=== PATIENT | female | born 1960 | race Caucasian/White ===

== ENCOUNTER 2018-10-06 20:09 | Emergency (ER) | payer MEDICAID, OTHER ==
[~2018-10-06] VITALS: Ht 167.6 cm; Wt 63.5 kg
[~2018-10-06 20:09] MED LIST: CLON0.5T12 PO; TRAM50TA2 PO
--- NOTE | 2018-10-06 20:10 | NUR ---
Patient triaged and placed in waiting room. VSS and patient appears in no acute distress at this time. Accompanied by SELF , awaiting available bed, and MD notified of need for MSE.
[2018-10-06 20:18] VITALS: BP_SYST 137
--- NOTE | 2018-10-07 00:11 | NUR ---
Pt ambulatory to bed 3 for evaluation
--- NOTE | 2018-10-07 00:48 | NUR ---
ER Dr. Harper at bedside examining patient.
--- NOTE | 2018-10-07 01:00 | NUR ---
PT "BUMPED INTO A POLE, AT WORK" LIGHT HEADACHE AT THE TIME OF INCIDENT. NO S/S OF ACUTE DISTRESS, V/S STABLE. RESTING ON [email or web address] RAILS UP
[2018-10-07 01:17] VITALS: BP_SYST 128
--- NOTE | 2018-10-07 01:18 | NUR ---
Patient given written and verbal discharge instructions and verbalizes understanding. ER MD discussed with patient the results and treatment provided. Patient in stable condition. ID arm band removed. Rx of TYLENOL given. Patient educated on pain management and to follow up with PMD. Pain Scale 0/10. Opportunity for questions provided and answered. Medication side effect fact sheet provided.
== END 2018-10-07 01:17 | disposition home or self-care (01) ==
LOC: SED 20:09
DX: S09.90XA Unspecified injury of head, initial encounter (principal); I10 Essential (primary) hypertension; W22.8XXA Striking against or struck by other objects, initial encounter; Y93.89 Activity, other specified; Y92.69 Other specified industrial and construction area as the place of occurrence of the external cause; Y99.8 Other external cause status; Z88.5 Allergy status to narcotic agent
CPT/HCPCS: 70450-TC; 99284

== ENCOUNTER 2020-11-09 21:29 | Emergency (ER) | payer MEDICAID ==
[~2020-11-09] VITALS: Ht 167.6 cm; Wt 63.5 kg
[~2020-11-09 21:29] MED LIST changes: -CLON0.5T12 PO; +CLON0.5T4 PO
[2020-11-09 21:40] VITALS: BP_SYST 142
[2020-11-09 21:48] VITALS: BP_SYST 142
[2020-11-09 22:11] LABS: BASOPHILS # (AUTO) 0.1 K/uL (0.0-0.2); BASOPHILS % (AUTO) 0.9 % (0.0-2.0); EOSINOPHILS # (AUTO) 0.1 K/uL (0.0-0.4); EOSINOPHILS % (AUTO) 0.9 % (0.0-4.0); HEMATOCRIT 35.5 % (36-48); HEMOGLOBIN 11.8 g/dL (12.0-16.0); LYMPHOCYTES # (AUTO) 2.3 K/uL (1.0-5.5); LYMPHOCYTES % (AUTO) 29.7 % (20.5-51.5); MEAN CORPUSCULAR HEMOGLOBIN 29 pg (27-31); MEAN CORPUSCULAR HGB CONC 33 % (32-36); MEAN CORPUSCULAR VOLUME 88 fL (79.0-98.0); MONOCYTES # (AUTO) 0.8 K/uL (0.0-1.0); MONOCYTES % (AUTO) 10.5 % (1.7-9.3); NEUTROPHILS # (AUTO) 4.6 K/uL (1.8-7.7); PLATELET COUNT (AUTO) 222 K/uL (130-430); RED BLOOD CELL COUNT(AUTO) 4.03 MIL/uL (4.2-6.2); RED CELL DISTRIBUTION WIDTH 14.6 % (9.0-15.0); WHITE BLOOD COUNT (AUTO) 7.9 K/uL (4.8-10.8)
[2020-11-09 22:23] LABS: CALCIUM 8.9 mg/dL (8.4-11.0); CREATININE 1.51 mg/dL (0.55-1.30); POTASSIUM 3.4 mmol/L (3.5-5.1)
[2020-11-09 22:26] LABS: INR 0.9 (0.8-1.2); PROTHROMBIN TIME 9.6 SECS (9.5-12.5)
[2020-11-09 22:34] LABS: ALBUMIN 4.1 g/dL (3.4-4.8); TOTAL BILIRUBIN 0.3 mg/dL (0.0-1.0)
== END 2020-11-09 22:32 | disposition left against medical advice (07) ==
LOC: SED 21:29
DX: S80.12XA Contusion of left lower leg, initial encounter (principal); S80.11XA Contusion of right lower leg, initial encounter; I10 Essential (primary) hypertension; X58.XXXA Exposure to other specified factors, initial encounter; Y93.89 Activity, other specified; Y92.89 Other specified places as the place of occurrence of the external cause; Y99.8 Other external cause status
CPT/HCPCS: 36415; 73552; 80053; 84703; 85025; 85610-TC; 85730-TC; 99284

== ENCOUNTER 2024-02-08 14:10 | Emergency (ER) | payer MEDICAID ==
[~2024-02-08] VITALS: Ht 167.6 cm; Wt 63.0 kg
[2024-02-08 14:24] VITALS: BP_SYST 142; PULSE 104; RESP 17; TEMP 98; O2SAT 96
[2024-02-08] MEDS: cloNIDine HCL 0.1 MG TABLET PO ONE (17:01)
[2024-02-08 17:03] LABS: BASOPHILS # (AUTO) 0.2 K/uL (0.0-0.2); EOSINOPHILS # (AUTO) 0.1 K/uL (0.0-0.4); EOSINOPHILS % (AUTO) 1.3 % (0.0-4.0); HEMOGLOBIN 11.7 g/dL (12.0-16.0); LYMPHOCYTES # (AUTO) 2.1 K/uL (1.0-5.5); LYMPHOCYTES % (AUTO) 27.8 % (20.5-51.5); MEAN CORPUSCULAR HEMOGLOBIN 29 pg (27-31); MEAN CORPUSCULAR HGB CONC 33 % (32-36); MEAN CORPUSCULAR VOLUME 86 fL (79.0-98.0); MONOCYTES # (AUTO) 0.7 K/uL (0.0-1.0); MONOCYTES % (AUTO) 9.7 % (1.7-9.3); NEUTROPHILS # (AUTO) 4.5 K/uL (1.8-7.7); NEUTROPHILS % (AUTO) 59.2 % (40.0-70.0); PLATELET COUNT (AUTO) 250 K/uL (130-430); RED CELL DISTRIBUTION WIDTH 15.8 % (9.0-15.0); WHITE BLOOD COUNT (AUTO) 7.6 K/uL (4.8-10.8)
[2024-02-08 17:17] LABS: ANION GAP 12 (5-15); CALCIUM 8.3 mg/dL (8.4-11.0); CARBON DIOXIDE 25 mmol/L (23-29); CHLORIDE 103 mmol/L (98-107); CREATININE 0.87 mg/dL (0.55-1.30); GFR AFRICAN AMERICAN 85 mL/min (>90); GFR NON AFRICAN-AMERICAN 70 mL/min (>90); GLUCOSE 123 mg/dL (74-106); POTASSIUM 3.6 mmol/L (3.5-5.1); SODIUM SERUM 140 mmol/L (136-145); UREA NITROGEN, BLOOD 24 mg/dL (8-21)
[2024-02-08 17:18] LABS: BILIRUBIN,URINE NEGATIVE (NEGATIVE); BLOOD, URINE NEGATIVE (NEGATIVE); CLARITY/URINE CLEAR (CLEAR); COLOR,URINE YELLOW (YELLOW); GLUCOSE,URINE NEGATIVE (NEGATIVE); KETONES,URINE NEGATIVE (NEGATIVE); LEUKOCYTE ESTERASE ,URINE NEGATIVE (NEGATIVE); NITRITE, URINE NEGATIVE (NEGATIVE); PH,URINE 5.5 (5.0-8.0); PROTEIN URINE NEGATIVE (NEGATIVE); UROBILINOGEN,URINE 0.2 (0.2-1.0)
[2024-02-08] MEDS ORDERED: LOSA-413 PO (18:18)
[2024-02-08 18:30] VITALS: BP_SYST 142; PULSE 93; RESP 17; TEMP 98; O2SAT 96
== END 2024-02-08 18:28 | disposition home or self-care (01) ==
LOC: SED 14:10
DX: I16.0 Hypertensive urgency (principal); R22.43 Localized swelling, mass and lump, lower limb, bilateral; Z88.5 Allergy status to narcotic agent; Z79.899 Other long term (current) drug therapy
CPT/HCPCS: 36415; 71045; 80048; 81001; 81003; 83880; 84484; 85025; 93005; 99285

== ENCOUNTER 2024-02-23 12:45 | Inpatient (IN) | payer MEDICAID ==
[~2024-02-23] VITALS: Ht 167.6 cm; Wt 61.2 kg
[~2024-02-23 12:45] MED LIST changes: +LOSA-413 PO
[2024-02-23 12:55] VITALS: BP_SYST 85; PULSE 106; RESP 20; TEMP 97.5; O2SAT 93
[2024-02-23] MEDS ORDERED: HYDR25TA4 PO (13:39)
[2024-02-23 14:02] LABS: BASOPHILS # (AUTO) 0.1 K/uL (0.0-0.2); BASOPHILS % (AUTO) 0.8 % (0.0-2.0); EOSINOPHILS % (AUTO) 0.4 % (0.0-4.0); HEMATOCRIT 40.2 % (36-48); HEMOGLOBIN 13.9 g/dL (12.0-16.0); LYMPHOCYTES # (AUTO) 2.4 K/uL (1.0-5.5); LYMPHOCYTES % (AUTO) 32.2 % (20.5-51.5); MEAN CORPUSCULAR HEMOGLOBIN 29 pg (27-31); MEAN CORPUSCULAR HGB CONC 35 % (32-36); MEAN CORPUSCULAR VOLUME 84 fL (79.0-98.0); MONOCYTES # (AUTO) 0.6 K/uL (0.0-1.0); MONOCYTES % (AUTO) 8.4 % (1.7-9.3); NEUTROPHILS # (AUTO) 4.3 K/uL (1.8-7.7); NEUTROPHILS % (AUTO) 58.2 % (40.0-70.0); PLATELET COUNT (AUTO) 309 K/uL (130-430); RED BLOOD CELL COUNT(AUTO) 4.82 MIL/uL (4.2-6.2); RED CELL DISTRIBUTION WIDTH 15.4 % (9.0-15.0); WHITE BLOOD COUNT (AUTO) 7.5 K/uL (4.8-10.8)
[2024-02-23 14:45] LABS: PROTHROMBIN TIME 10.4 SECS (9.5-12.5)
[2024-02-23 14:46] LABS: ALANINE AMINOTRANSFERASE 26 U/L (12-78); ALBUMIN 4.1 g/dL (3.4-4.8); ANION GAP 18 (5-15); ASPARTATE AMINOTRANSFERASE 8 U/L (10-37); BILIRUBIN,DIRECT 0.1 mg/dL (0.0-0.3); CALCIUM 9.7 mg/dL (8.4-11.0); CARBON DIOXIDE 26 mmol/L (23-29); CHLORIDE 92 mmol/L (98-107); CREATINE KINASE, TOTAL 48 U/L (26-192); CREATININE 1.95 mg/dL (0.55-1.30); FREE T4 (FREE THYROXINE) 1.3 ng/dL (0.6-1.6); GFR AFRICAN AMERICAN 33 mL/min (>90); GLUCOSE 119 mg/dL (74-106); LIPASE 50 U/L (16-77); SODIUM SERUM 136 mmol/L (136-145); THYROID STIMULATING HORMONE 3.47 uIu/mL (0.34-4.82); TOTAL BILIRUBIN 0.7 mg/dL (0.0-1.0); TOTAL PROTEIN, SERUM 7.9 g/dL (6.4-8.3); UREA NITROGEN, BLOOD 54 mg/dL (8-21)
[2024-02-23 14:47] LABS: GFR NON AFRICAN-AMERICAN 28 mL/min (>90)
[2024-02-23 14:48] LABS: POTASSIUM 2.5 mmol/L (3.5-5.1)
[2024-02-23] MEDS: POTASSIUM CHLORIDE 20 MEQ/PKT PACKET PO ONE (15:02)
[2024-02-23] MEDS: KCL 20 mEq in 100 mL (PREMIX) 100 ML IV ONE (15:02)
[2024-02-23] MEDS: KCL 20 mEq in D5NS 1000 mL 1,000 ML IV SCH (16:15)
[2024-02-23] MEDS ORDERED: ACETAMINOPHEN 325 MG TABLET PO PRN ×2 (16:15→16:30)
[2024-02-23] MEDS ORDERED: ONDANSETRON HCL 4 MG/2 ML VIAL IVP PRN (16:15)
[2024-02-23] MEDS: KCL 20 mEq in D5/0.45NS 1000mL 1,000 ML IV ONE (18:00)
[2024-02-23 19:54] LABS: BILIRUBIN,URINE NEGATIVE (NEGATIVE); BLOOD, URINE NEGATIVE (NEGATIVE); CLARITY/URINE CLEAR (CLEAR); COLOR,URINE YELLOW (YELLOW); GLUCOSE,URINE NEGATIVE (NEGATIVE); KETONES,URINE NEGATIVE (NEGATIVE); LEUKOCYTE ESTERASE ,URINE NEGATIVE (NEGATIVE); NITRITE, URINE NEGATIVE (NEGATIVE); PH,URINE 5.5 (5.0-8.0); PROTEIN URINE NEGATIVE (NEGATIVE); UROBILINOGEN,URINE 0.2 (0.2-1.0)
[2024-02-23] MEDS: LORazepam 2 MG/ML VIAL IVP PRN (21:03)
[2024-02-23] MEDS: clonazePAM 0.5 MG TABLET PO SCH (21:03)
[2024-02-23 21:30] VITALS: BP_SYST 102; PULSE 84; RESP 18; TEMP 97.6; O2SAT 98
[2024-02-23] MEDS: traMADol HCL HCL 50 MG TABLET (ULTRAM) PO SCH (21:52)
[2024-02-24] VITALS: BP_SYST 106; PULSE 83; RESP 18; TEMP 96.9; O2SAT 96
[2024-02-24 04:00] VITALS: BP_SYST 115; PULSE 76; RESP 18; TEMP 96.2; O2SAT 97
[2024-02-24 04:34] LABS: BASOPHILS % (AUTO) 0.7 % (0.0-2.0); EOSINOPHILS # (AUTO) 0.1 K/uL (0.0-0.4); EOSINOPHILS % (AUTO) 0.9 % (0.0-4.0); HEMATOCRIT 34.6 % (36-48); HEMOGLOBIN 11.6 g/dL (12.0-16.0); LYMPHOCYTES # (AUTO) 2.4 K/uL (1.0-5.5); LYMPHOCYTES % (AUTO) 36.4 % (20.5-51.5); MEAN CORPUSCULAR HEMOGLOBIN 29 pg (27-31); MEAN CORPUSCULAR HGB CONC 34 % (32-36); MEAN CORPUSCULAR VOLUME 85 fL (79.0-98.0); MONOCYTES # (AUTO) 0.7 K/uL (0.0-1.0); MONOCYTES % (AUTO) 11.2 % (1.7-9.3); NEUTROPHILS # (AUTO) 3.3 K/uL (1.8-7.7); NEUTROPHILS % (AUTO) 50.8 % (40.0-70.0); PLATELET COUNT (AUTO) 237 K/uL (130-430); RED BLOOD CELL COUNT(AUTO) 4.09 MIL/uL (4.2-6.2); RED CELL DISTRIBUTION WIDTH 15.7 % (9.0-15.0); WHITE BLOOD COUNT (AUTO) 6.5 K/uL (4.8-10.8)
[2024-02-24 04:54] LABS: ALBUMIN 3.1 g/dL (3.4-4.8); CALCIUM 8.3 mg/dL (8.4-11.0); CREATININE 1.23 mg/dL (0.55-1.30); PHOSPHORUS 3.9 mg/dL (2.7-4.5); POTASSIUM 3.4 mmol/L (3.5-5.1); TOTAL BILIRUBIN 0.4 mg/dL (0.0-1.0); TOTAL PROTEIN, SERUM 6.1 g/dL (6.4-8.3)
[2024-02-24] MEDS: KCL 20 mEq in D5/0.45NS 1000mL 1,000 ML IV ONE (05:47)
[2024-02-24 08:00] VITALS: BP_SYST 115; PULSE 78; RESP 17; TEMP 97.2; O2SAT 96; O2SAT 97
[2024-02-24] MEDS: LOSARTAN POTASSIUM 50 MG TABLET (COZAAR) PO SCH (09:27)
[2024-02-24] MEDS: HYDROCHLOROTHIAZIDE 25 MG TABLET (HCTZ) PO SCH (09:28)
[2024-02-24 12:00] VITALS: BP_SYST 114; PULSE 72; RESP 16; TEMP 97.2; O2SAT 97
[2024-02-24] MEDS: POLYETHYLENE GLYCOL 3350, 17 GM/ POWD.PACK PO ONE (14:46)
[2024-02-24] MEDS: MINERAL OIL 30 ML UDC PO ONE (14:47)
[2024-02-24 16:00] VITALS: BP_SYST 114; PULSE 91; RESP 17; TEMP 97.2; O2SAT 97
[2024-02-24 16:49] VITALS: BP_SYST 114; PULSE 72; RESP 17; TEMP 97.2; O2SAT 97
[2024-02-25] MEDS ORDERED: POLYETHYLENE GLYCOL 3350, 17 GM/ POWD.PACK PO SCH (09:00)
== END 2024-02-24 17:14 | disposition home or self-care (01) | DRG 469 ==
LOC: SED 12:45 → STU 15:28
PROVIDERS: ADMIT Preventive Medicine Preventive Medicine/Occupational Environmental Medicine; ATTEND Preventive Medicine Preventive Medicine/Occupational Environmental Medicine
DX: N17.9 Acute kidney failure, unspecified (principal); E87.20 Acidosis, unspecified; E44.0 Moderate protein-calorie malnutrition; E88.09 Other disorders of plasma-protein metabolism, not elsewhere classified; I10 Essential (primary) hypertension; E87.5 Hyperkalemia; D64.9 Anemia, unspecified; E87.6 Hypokalemia; E83.52 Hypercalcemia; K25.9 Gastric ulcer, unspecified as acute or chronic, without hemorrhage or perforation; K59.00 Constipation, unspecified; Z79.899 Other long term (current) drug therapy; Z88.5 Allergy status to narcotic agent; Z87.11 Personal history of peptic ulcer disease; Z68.21 Body mass index [BMI] 21.0-21.9, adult
CPT/HCPCS: 36415; 76770; 80048; 80053; 80076; 81001; 81003; 82550; 83605; 83690; 83735; 84100; 84439; 84443; 84484; 85025; 85610; 85730; 86886; 86900; 86901; 93005; 97116-GP; 97163-GP; 99285; G0378; J2060; J3480